=== PATIENT | female | born 1935 | race Caucasian/White ===

== ENCOUNTER 2017-01-12 10:14 | Emergency (ER) | payer OTHER, MEDICARE ==
[~2017-01-12] VITALS: Ht 144.8 cm; Wt 69.6 kg
[~2017-01-12 10:14] MED LIST: ASPIRIN81 M1 PO; CALTRATE 600 +1 EACH PO; FISH OIL 1,0001 EAC7 PO; NEBS; NORVASC10 M1 PO; Pyridoxine,Vitamin B PO; THERAGRAN1 TABLET PO; VITAMINS; Vitamin B-12 PO
[2017-01-12] MEDS ORDERED: BACLOFEN10 MG PO (12:11)
[2017-01-12] MEDS ORDERED: ULTRAM50 MG PO (12:11)
[2017-01-12 12:44] VITALS: BP 141/66
== END 2017-01-12 12:44 | disposition home or self-care (01) ==
LOC: EME 10:14 → TRA 10:14
DX: S61.402A Unspecified open wound of left hand, initial encounter (principal); M54.2 Cervicalgia; V49.40XA Driver injured in collision with unspecified motor vehicles in traffic accident, initial encounter; I10 Essential (primary) hypertension; Z79.82 Long term (current) use of aspirin
CPT/HCPCS: 73130; 99281; 99285